=== PATIENT | female | born 1960 | race Caucasian/White ===

== ENCOUNTER 2021-09-26 09:47 | Outpatient (CLI) | payer BC, SELFPAY ==
--- NOTE | 2021-09-26 08:45 | DI.NM_ITS ---
Exam(s) NM HEPATOBILIARY SCAN GRP EXAM: NM HEPATOBILIARY SCAN GRP CLINICAL HISTORY: PERIUMBILICAL PAIN,R10.33,H/O CHOLELITHIASIS. TECHNIQUE: Injected dose: 5 mCi Tc-99 mebrofenin Initial dynamic images: 60 minutes Addition images: 70 minutes delay anterior lateral static images. COMPARISON: No exams were available for comparison FINDINGS: Normal hepatic transit time. Prompt excretion into the small bowel. Prompt excretion into the gallbladder. IMPRESSION: 1. No evidence of acute cholecystitis. SNM guidelines: Gallbladder visualization should be present by 3 hours. Delayed [id number] mullins sit beyond 60 min raises the suspicion for partial common bile duct (CBD) obstruction. Gallbladder ejection fraction <35% has a good correlation with acalculous disease (i.e., chronic acal culous cholecystitis, cystic duct syndrome, sphincter of Oddi disease).
== END 2021-09-26 10:07 ==
PROVIDERS: Visit Provider Nurse Practitioner Family
DX: R10.33 Periumbilical pain (principal)
CPT/HCPCS: 78227